=== PATIENT | female | born 1980 | race Caucasian/White ===

== ENCOUNTER 2019-07-29 04:26 | Emergency (ER) | payer OTHER ==
[~2019-07-29] VITALS: Ht 154.9 cm; Wt 61.2 kg
[2019-07-29 05:12] LABS: BASOPHILS ABSOLUTE AUTO 0.04 K/mm3 (0.00-0.23); BASOPHILS PERCENT AUTO 1 % (0-2); EOSINOPHILS ABSOLUTE AUTO 0.16 K/mm3 (0.00-0.68); EOSINOPHILS PERCENT AUTO 2 % (0-6); Hematocrit 35.2 % (33.0-51.0); Hemoglobin 11.2 g/dL (11.5-16.0); IMMATURE GRAN ABSOLUTE AUTO 0.01 K/mm3 (0.00-0.10); IMMATURE GRAN PERCENT AUTO 0 % (0-1); LYMPHOCYTES ABSOLUTE AUTO 2.25 K/mm3 (0.84-5.20); LYMPHOCYTES PERCENT AUTO 29 % (21-46); MONOCYTES ABSOLUTE AUTO 0.79 K/mm3 (0.16-1.47); MONOCYTES PERCENT AUTO 10 % (4-13); Mean Corpuscular HGB 27.2 pg (26.0-34.0); Mean Corpuscular HGB Conc 31.8 g/dL (31.5-36.5); Mean Corpuscular Volume 85 fL (80-100); Mean Platelet Volume 9.9 fL (9.1-12.4); NEUTROPHILS ABSOLUTE AUTO 4.55 K/mm3 (1.96-9.15); NEUTROPHILS PERCENT AUTO 58 % (41-73); Platelet Count 248 K/mm3 (150-400); RDW Coefficient Variation 13.4 % (11.7-14.2); RDW Standard Deviation 41.7 fL (35.1-46.3); Red Blood Cell Count 4.12 M/mm3 (3.80-5.20)
[2019-07-29 05:33] LABS: Alanine Aminotransfer (ALT/SGP 25 U/L (12-78); Albumin, Blood 3.3 g/dL (3.4-5.0); Albumin/Globulin Ratio 0.9 (0.8-1.8); Alk Phos 73 U/L (50-136); Anion Gap 5 mmol/L (6-16); Aspartate Aminotrans (AST/SGOT 16 U/L (12-37); Bilirubin, Total 0.2 mg/dL (0.1-1.0); Blood Urea Nitrogen 7 mg/dL (8-24); CO2, Blood 23 mmol/L (21-32); Calcium, Blood 8.6 mg/dL (8.5-10.1); Chloride, Blood 114 mmol/L (98-108); Globulin, Blood 3.5 g/dL (2.2-4.0); Glomerular Filtration Rate >60 (60-); Glucose, Blood 87 mg/dL (70-99); Magnesium, Blood 1.6 mg/dL (1.6-2.4); Potassium, Blood 3.1 mmol/L (3.5-5.5); Sodium, Blood 142 mmol/L (136-145); Total Protein, Blood 6.8 g/dL (6.4-8.2)
[2019-07-29 05:36] LABS: Source, Urine Clean Catch
[2019-07-29] MEDS ORDERED: BUPR75 PO (05:39)
[2019-07-29] MEDS ORDERED: GABA300 PO (05:39)
[2019-07-29] MEDS ORDERED: QUET100 PO (05:40)
[2019-07-29] MEDS ORDERED: FLUOXETINE HCL60 MG PO (05:40)
[2019-07-29] MEDS ORDERED: CLON.1 PO (05:40)
[2019-07-29] MEDS ORDERED: BACL10 PO (05:41)
[2019-07-29 05:42] LABS: Appearance, Urine Clear (Clear); Bilirubin, Urine Neg (Neg); Blood, Urine Neg (Neg); Color, Urine Amber (P-Yellow); Glucose Qualitative, Urine Neg (Neg); Ketones, Urine 1+ (Neg); Leukocyte Esterase, Urine 1+ (Neg); Nitrite, Urine Neg (Neg); Protein, Urine 1+ (Neg); Urobilinogen, Urine 1+ (Normal)
[2019-07-29 05:50] LABS: Bacteria Few /hpf; Red Blood Cells, Urine Not Seen /hpf (0-2); Squamous Epithelial Cells Mod /hpf (Few); White Blood Cells, Urine 0-2 /hpf (0-5)
[2019-07-29 05:51] LABS: Calcium Oxalate Crystals Few /hpf; Mucus Light (0-Heavy)
[2019-07-29] MEDS ORDERED: Flagyl500 MG PO (06:08)
[2019-07-29] MEDS ORDERED: Zofran4 MG PO (06:09)
[2019-07-29] MEDS ORDERED: Lomotil Tablet1 EACH PO (06:26)
== END 2019-07-29 06:47 | disposition home or self-care (01) ==
LOC: ER 04:26
PROVIDERS: Emergency Medicine
DX: E87.6 Hypokalemia (principal); R19.7 Diarrhea, unspecified; E86.0 Dehydration; K21.9 Gastro-esophageal reflux disease without esophagitis; F17.200 Nicotine dependence, unspecified, uncomplicated
CPT/HCPCS: 80053; 81001; 81025; 83690; 83735; 84145; 85025; 87015; 87045; 87046; 87086; 87177; 87205; 87209; 87493; 87899; 96361; 96374; 99284-25; A9270-GY; J2550; J7030

== ENCOUNTER 2024-10-17 10:38 | Inpatient (IN) | payer OTHER ==
[~2024-10-17] VITALS: Ht 154.9 cm; Wt 56.2 kg
[~2024-10-17 10:38] MED LIST: BACL10 PO; BUPR75 PO; CLON.1 PO; FLUOXETINE HCL60 MG PO; Flagyl500 MG PO; GABA300 PO; Lomotil Tablet1 EACH PO; QUET100 PO; Zofran4 MG PO
[2024-10-17 12:17] LABS: BASOPHILS ABSOLUTE AUTO 0.07 K/mm3 (0.00-0.23); BASOPHILS PERCENT AUTO 0 % (0-2); EOSINOPHILS ABSOLUTE AUTO 0.03 K/mm3 (0.00-0.68); EOSINOPHILS PERCENT AUTO 0 % (0-6); Hematocrit 33.1 % (33.0-51.0); Hemoglobin 10.7 g/dL (11.5-16.0); IMMATURE GRAN ABSOLUTE AUTO 0.22 K/mm3 (0.00-0.10); IMMATURE GRAN PERCENT AUTO 1 % (0-1); LYMPHOCYTES ABSOLUTE AUTO 1.27 K/mm3 (0.84-5.20); LYMPHOCYTES PERCENT AUTO 6 % (21-46); MONOCYTES ABSOLUTE AUTO 1.41 K/mm3 (0.16-1.47); MONOCYTES PERCENT AUTO 7 % (4-13); Mean Corpuscular HGB Conc 32.3 g/dL (31.5-36.5); Mean Corpuscular Volume 81 fL (80-100); NEUTROPHILS ABSOLUTE AUTO 18.82 K/mm3 (1.96-9.15); NEUTROPHILS PERCENT AUTO 86 % (41-73); Platelet Count 560 K/mm3 (150-400); RDW Coefficient Variation 14.3 % (11.7-14.2); RDW Standard Deviation 42.5 fL (35.1-46.3); Red Blood Cell Count 4.11 M/mm3 (3.80-5.20); White Blood Cell Count 21.82 K/mm3 (4.00-11.30)
[2024-10-17 12:29] LABS: Influenza A, PCR NEGATIVE (NEGATIVE); Influenza B, PCR NEGATIVE (NEGATIVE); SARS-Cov-2 (COVID-19) PCR, MMC NEGATIVE (NEGATIVE)
[2024-10-17 12:30] LABS: Resp Syncytial Virus, PCR POSITIVE (NEGATIVE)
[2024-10-17 12:46] LABS: Albumin, Blood 2.2 g/dL (3.4-5.0); Albumin/Globulin Ratio 0.4 (0.8-1.8); Bilirubin, Total 0.4 mg/dL (0.1-1.0); Bun/Creatinine Ratio 22.4 (12.0-20.0); Creatinine, Blood 0.54 mg/dL (0.40-1.00); Potassium, Blood 4.1 mmol/L (3.5-5.5); Total Protein, Blood 8.2 g/dL (6.4-8.2)
[2024-10-17] MEDS ORDERED: Piperacillin/Tazobactam Sod 3.375 GM in NS 100 ML IV ONE (14:25)
[2024-10-17] MEDS ORDERED: NS 1,000 ML IV SCH ×2 (15:15→17:45)
[2024-10-17] MEDS ORDERED: Acetaminophen 500 MG Tab PO ONE (15:15)
[2024-10-17] MEDS ORDERED: Vancomycin HCL 1,250 MG in NS 250 ML IV ONE (15:25)
[2024-10-17 16:55] LABS: Source, Urine Clean Catch
[2024-10-17 17:05] LABS: Appearance, Urine Cloudy (Clear); Bilirubin, Urine Neg (Neg); Blood, Urine 1+ (Neg); Color, Urine Yellow (P-Yellow); Glucose Qualitative, Urine Neg (Neg); Ketones, Urine 1+ (Neg); Leukocyte Esterase, Urine 3+ (Neg); Nitrite, Urine Neg (Neg); Protein, Urine 2+ (Neg); Specific Gravity, Urine 1.005 (1.003-1.022); Urobilinogen, Urine 2+ (Normal)
[2024-10-17] MEDS ORDERED: Lactated Ringer's 1,000 ML IV SCH (17:10)
[2024-10-17] MEDS ORDERED: Acetaminophen 325 MG TABLET PO PRN (17:10)
[2024-10-17] MEDS ORDERED: FLU VACC TS2024-25(6MOS UP)/PF 45 MCG/0.5 ML SYRINGE IM ONE (17:10)
[2024-10-17] MEDS ORDERED: Ondansetron HCl 2 MG / ML 2ML Vial IV PRN (17:15)
[2024-10-17 17:20] LABS: Bacteria Mod /hpf; Squamous Epithelial Cells Few /hpf (Few)
[2024-10-17] MEDS ORDERED: Ketorolac Tromethamine 15mg Vial IV PRN (17:40)
[2024-10-17] MEDS ORDERED: Clindamycin 900mg in D5W 50ML 50 ML IV SCH (18:00)
[2024-10-17 19:31] VITALS: BP 90/56
[2024-10-17 19:41] LABS: U Amphetamine Screen DETECTED; U Barbituate Screen Not Detected; U Benzodiazapine Screen Not Detected; U Buprenorphine Screen Not Detected; U Cannabinoids Screen DETECTED; U Cocaine Screen Not Detected; U Methadone Screen Not Detected; U Methamphetamine Screen DETECTED; U Opiates Screen Not Detected; U Oxycodone Screen Not Detected; U Phencyclidine Screen Not Detected
[2024-10-17] MEDS ORDERED: OxyCODONE HCL 5 MG TAB PO PRN (20:55)
[2024-10-17] MEDS ORDERED: Lactobacil 2-S.Thermo-Bifido 1 1 Cap PO SCH (21:00)
[2024-10-18] MEDS ORDERED: Piperacillin/Tazobactam Sod 3.375 GM in NS 100 ML IV SCH
[2024-10-18] MEDS ORDERED: Vancomycin HCL 1,000 MG in NS 250 ML IV SCH
[2024-10-18 03:21] VITALS: BP 113/74
[2024-10-18 05:44] LABS: BASOPHILS ABSOLUTE AUTO 0.04 K/mm3 (0.00-0.23); BASOPHILS PERCENT AUTO 0 % (0-2); EOSINOPHILS ABSOLUTE AUTO 0.06 K/mm3 (0.00-0.68); EOSINOPHILS PERCENT AUTO 0 % (0-6); Hematocrit 28.1 % (33.0-51.0); Hemoglobin 8.8 g/dL (11.5-16.0); IMMATURE GRAN ABSOLUTE AUTO 0.13 K/mm3 (0.00-0.10); IMMATURE GRAN PERCENT AUTO 1 % (0-1); LYMPHOCYTES ABSOLUTE AUTO 1.06 K/mm3 (0.84-5.20); LYMPHOCYTES PERCENT AUTO 6 % (21-46); MONOCYTES ABSOLUTE AUTO 1.09 K/mm3 (0.16-1.47); MONOCYTES PERCENT AUTO 6 % (4-13); Mean Corpuscular HGB 25.9 pg (26.0-34.0); Mean Corpuscular HGB Conc 31.3 g/dL (31.5-36.5); Mean Corpuscular Volume 83 fL (80-100); Mean Platelet Volume 9.1 fL (9.1-12.4); NEUTROPHILS ABSOLUTE AUTO 14.91 K/mm3 (1.96-9.15); NEUTROPHILS PERCENT AUTO 86 % (41-73); Platelet Count 463 K/mm3 (150-400); RDW Coefficient Variation 14.6 % (11.7-14.2); RDW Standard Deviation 43.8 fL (35.1-46.3); White Blood Cell Count 17.29 K/mm3 (4.00-11.30)
[2024-10-18] MEDS ORDERED: Pantoprazole Sodium 40 MG Injection IV SCH (06:00)
[2024-10-18 06:16] LABS: Albumin, Blood 1.6 g/dL (3.4-5.0); Albumin/Globulin Ratio 0.3 (0.8-1.8); Bilirubin, Total 0.5 mg/dL (0.1-1.0); Bun/Creatinine Ratio 21.8 (12.0-20.0); Calcium, Blood 8.3 mg/dL (8.5-10.1); Creatinine, Blood 0.6 mg/dL (0.40-1.00); Globulin, Blood 4.8 g/dL (2.2-4.0); Magnesium, Blood 2.1 mg/dL (1.6-2.4); Potassium, Blood 3.7 mmol/L (3.5-5.5); Total Protein, Blood 6.4 g/dL (6.4-8.2)
[2024-10-18 07:43] VITALS: BP 121/69
--- NOTE | 2024-10-18 08:30 | NUR ---
PT TO RADIOLOGY TO DRAIN ABSCESS.
--- NOTE | 2024-10-18 09:30 | NUR ---
PT BACK TO ROOM FROM RADIOLOGY. DRAIN TO PELVIC ABSCESS IN PLACE AND PATENT.
[2024-10-18 12:43] VITALS: BP 99/62
[2024-10-18 16:22] LABS: Vancomycin, Trough 15.1 ug/mL (5.0-10.0)
[2024-10-18 16:45] VITALS: BP 96/62
--- NOTE | 2024-10-18 18:10 | NUR ---
SHIFT SUMMARY PT IS A/OX4. SBA IN THE ROOM TO ASSIST WITH LINES/CORDS. DRAIN TO THE ABSCESS PLACED THIS MORNING. DRAN REMAINS PATENT. PT REPORTS MILD PAIN THROUGHOUT THIS SHIFT, MEDICATED PER SEP. LOW-GRADE FEVER PRESENT THIS AFTERNOON, MEDICATED WITH TYLENOL PER SEP. WHEN ASSISTING THE PT TO THE BATHROOM THIS EVENING BLOOD WAS ASSESSED ON THE SHEETS UNDERNEATH WHERE THE PT WAS SITTING. URINE IS RED WITH MODERATE SIZED CLOTS. BLEEDING APPEARS TO BE FROM MENSTRUATION. CONTINUOUS NS RUNNING @ 100 ML/HR. PT CALLS APPROPRIATELY USING THE CALL LIGHT.
[2024-10-18 19:25] VITALS: BP 124/70
[2024-10-19 03:23] VITALS: BP 110/70
--- NOTE | 2024-10-19 04:22 | NUR ---
VAGINAL SWAB SENT TO THE LAB @ 8940.
--- NOTE | 2024-10-19 04:25 | NUR ---
SHIFT SUMMARY NO ACUTE EVENTS DURING THE NIGHT HOURS. @HS PT FEBRILE, 101F. MEDICATED WITH PRN TYLENOL. RECHECK TEMP. 98F. PT REPORTS EFFECTIVE. PT C/O 9-05/09 LLQ AND LEFT GROIN PAIN. PO PRN OXYCODONE EFFECTIVE PER PT REPORT. DRAIN INSERTION SITE C/D/I. OUTPUT FROM THE DRAIN 120MLS OF CREAMY COLOR, MILDLY THICK AND ODOROUS DISCHARGE. PT HAS MODERATE AMOUNT OF VAGINAL BLEEDING, NO CLOTS NOTED. SBA TO THE BSC. VAGINAL SWAB SENT TO THE LAB FOR CHLAMYDIA TESTING @0400. NS INFUSING @100MLS/HR ORDERED. IV ABX'S INFUSED ORDERED.TELE: SINUS TACH @100BPM. PT DENIES CHEST PAIN/PRESSURE. PT IS A/O X4, PLEASANT, AND ABLE TO MAKE HER NEEDS KNOWN. NO OTHER CONCERNS AT THIS TIME. CONTINUING PT EDUCATION. BED AT THE LOWEST POSITION, CALL LIGHT W/I REACH.
[2024-10-19 05:30] LABS: BASOPHILS ABSOLUTE AUTO 0.03 K/mm3 (0.00-0.23); BASOPHILS PERCENT AUTO 0 % (0-2); EOSINOPHILS ABSOLUTE AUTO 0.08 K/mm3 (0.00-0.68); EOSINOPHILS PERCENT AUTO 1 % (0-6); Hematocrit 25.1 % (33.0-51.0); Hemoglobin 8.1 g/dL (11.5-16.0); IMMATURE GRAN ABSOLUTE AUTO 0.11 K/mm3 (0.00-0.10); IMMATURE GRAN PERCENT AUTO 1 % (0-1); LYMPHOCYTES PERCENT AUTO 8 % (21-46); MONOCYTES ABSOLUTE AUTO 0.65 K/mm3 (0.16-1.47); MONOCYTES PERCENT AUTO 7 % (4-13); Mean Corpuscular HGB 26.5 pg (26.0-34.0); Mean Corpuscular HGB Conc 32.3 g/dL (31.5-36.5); Mean Corpuscular Volume 82 fL (80-100); Mean Platelet Volume 9.4 fL (9.1-12.4); NEUTROPHILS ABSOLUTE AUTO 8.02 K/mm3 (1.96-9.15); NEUTROPHILS PERCENT AUTO 83 % (41-73); Platelet Count 406 K/mm3 (150-400); RDW Coefficient Variation 14.7 % (11.7-14.2); RDW Standard Deviation 44.4 fL (35.1-46.3); Red Blood Cell Count 3.06 M/mm3 (3.80-5.20); White Blood Cell Count 9.69 K/mm3 (4.00-11.30)
[2024-10-19 06:02] LABS: Calcium, Blood 7.8 mg/dL (8.5-10.1); Creatinine, Blood 0.56 mg/dL (0.40-1.00); Potassium, Blood 3.6 mmol/L (3.5-5.5)
[2024-10-19 06:59] LABS: Chlamydia Trachomatis Vaginal NOT DETECTED (NOT DETECT); Neisseria Gonorrhoea Vaginal NOT DETECTED (NOT DETECT)
[2024-10-19 08:18] VITALS: BP 96/66
[2024-10-19] MEDS ORDERED: Enoxaparin 40 MG/0.4 ML SYR SC SCH (09:00)
[2024-10-19 14:04] VITALS: BP 101/60
--- NOTE | 2024-10-19 17:26 | NUR ---
SHIFT SUMMARY: PATIENT A/OX4, CALM, PLEASANT AND COOPERATIVE c CARE. PATIENT DENIES CP/PRESSURE, SOB, N/V AND DIZZINESS. PATIENT ON TELE, SR HR IN THE HIGH 80'S BPM c OCCASIONAL PVC. PATIENT MEDICATED X1 FOR PAIN PER EMAR c GOOD EFFECT. PATIENT HAS HAD NO FEVER THIS SHIFT. PATIENT DAY 1 POST-OP ACCORDIAN DRAINED PLACEMENT TO L SIDE ABDOMEN ABSCESS, SITE IS PATENT DRAINING 200 MLS GREENISH CREAMY COLOR, MALODOROUS. PATIENT HAS MOD APPETITE, CONTINENT OF BOWEL/BLADDER, USES BSC INDEPENDENTLY T/O SHIFT. PATIENT RECEIVED IV ABX/SCHEDULED MEDS PER EMAR. VITAL SIGNS REVIEWED. BED IN LOWEST POSITIONED. CALL LIGHT IN REACH.
[2024-10-19 17:47] VITALS: BP 100/60
[2024-10-19 19:38] VITALS: BP 96/55
--- NOTE | 2024-10-20 03:06 | NUR ---
SHIFT SUMMARY NO ACUTE EVENTS DURING THIS SHIFT. NS INFUSING 100MLS/HR AND IV ABX'S INFUSED ORDERED. LL INCISION SITE C/D/I. ACCORDION DRAIN OUTPUT>100MLS, MILKY APPEARING DISCHARGE. PT CONTINUES TO HAVE BLOODY VAGINAL DISCHARGE. TELE: SR @82. PT DENIES CHEST PAIN/PRESSURE/SOB. MEDICATED ORDERED WITH PRN PO TYLENOL FOR C/O 02/06 LL ABDOMINAL PAIN. PT REPORTS LEFT LEG HAS LESS OF ROM. BED AT THE LOWEST POSITION, CALL LIGHT W/I REACH. PT IS A/O X4, ABLE TO MAKE HER NEEDS KNOWN AND COOPERATIVE [facility].
[2024-10-20 03:33] VITALS: BP 114/74
[2024-10-20 04:49] LABS: BASOPHILS ABSOLUTE AUTO 0.04 K/mm3 (0.00-0.23); BASOPHILS PERCENT AUTO 1 % (0-2); EOSINOPHILS ABSOLUTE AUTO 0.16 K/mm3 (0.00-0.68); EOSINOPHILS PERCENT AUTO 3 % (0-6); Hematocrit 29.6 % (33.0-51.0); Hemoglobin 9.3 g/dL (11.5-16.0); IMMATURE GRAN ABSOLUTE AUTO 0.13 K/mm3 (0.00-0.10); IMMATURE GRAN PERCENT AUTO 2 % (0-1); LYMPHOCYTES ABSOLUTE AUTO 1.28 K/mm3 (0.84-5.20); LYMPHOCYTES PERCENT AUTO 20 % (21-46); MONOCYTES ABSOLUTE AUTO 0.65 K/mm3 (0.16-1.47); MONOCYTES PERCENT AUTO 10 % (4-13); Mean Corpuscular HGB 25.8 pg (26.0-34.0); Mean Corpuscular HGB Conc 31.4 g/dL (31.5-36.5); Mean Corpuscular Volume 82 fL (80-100); Mean Platelet Volume 8.9 fL (9.1-12.4); NEUTROPHILS ABSOLUTE AUTO 4.22 K/mm3 (1.96-9.15); NEUTROPHILS PERCENT AUTO 65 % (41-73); Platelet Count 543 K/mm3 (150-400); RDW Coefficient Variation 14.6 % (11.7-14.2); RDW Standard Deviation 44.2 fL (35.1-46.3); White Blood Cell Count 6.48 K/mm3 (4.00-11.30)
[2024-10-20 05:05] LABS: Bun/Creatinine Ratio 12.9 (12.0-20.0); Calcium, Blood 8.3 mg/dL (8.5-10.1); Creatinine, Blood 0.54 mg/dL (0.40-1.00); Potassium, Blood 3.4 mmol/L (3.5-5.5)
[2024-10-20] MEDS ORDERED: Potassium Chloride 20 MEQ TabCR PO ONE (06:37)
[2024-10-20 08:08] VITALS: BP 110/68
[2024-10-20 11:45] LABS: HEPATITIS A ANTIBODY, IGM Negative (Negative); HEPATITIS B CORE ANTIBODY, IGM Negative (Negative); HEPATITIS B SURFACE ANTIGEN Negative (Negative); HEPATITIS C AB CIA INTERP Negative (Negative)
[2024-10-20 12:08] LABS: HIV 1,2 COMBO ANTIGEN/ANTIBODY Negative (Negative)
[2024-10-20 15:51] VITALS: BP 109/66
--- NOTE | 2024-10-20 17:59 | NUR ---
SHIFT SUMMARY PT IS A/OX4. INDEPENDENT IN THE ROOM. NO ACUTE CHANGES THROUGHOUT THIS SHIFT. REPEAT CT COMPLETED THIS MORNING, POSSIBLY ANOTHER REPEAT TO BE COMPLETED IN THE MORNING. PT CONTINUES RECIEVING NS @ 100 ML/HR AND IV ANTIBIOTICS. NO FEVER PRESENT THROUGHOUT THIS SHIFT.
[2024-10-20 20:27] VITALS: BP 106/82
[2024-10-21 01:17] VITALS: BP 95/58
--- NOTE | 2024-10-21 03:11 | NUR ---
SHIFT SUMMARY NO ACUTE DISTRESS/EVENTS DURING THIS SHIFT. TELE:NSR @88. @HS PT C/O 02/06 LLQ PAIN. MEDICATED PER EMAR WITH GOOD EFFECTIVNESS. HS SNACK PROVIDED. NS INFUSING ORDERED. ACCORDION DRAIN INTACT, MINIMAL OUTPUT. PT RESTING T/O THIS SHIFT. INDEPENDENT W/I THE HOSPITAL ROOM. PT CONTINUES TO HAVE BLOODY VAGINAL DISCHARGE. BED AT THE LOWEST POSITION, CALL LIGHT W/I REACH. PT IS A/O X4, ABLE TO MAKE HER NEEDS KNOWN AND COOPERATIVE WITH CARE.
[2024-10-21 05:20] VITALS: BP 115/89
[2024-10-21 07:50] VITALS: BP 102/70
[2024-10-21 08:28] LABS: Hematocrit 28.2 % (33.0-51.0); Hemoglobin 8.8 g/dL (11.5-16.0); Mean Corpuscular HGB Conc 31.2 g/dL (31.5-36.5); Mean Corpuscular Volume 83 fL (80-100); Mean Platelet Volume 8.9 fL (9.1-12.4); Platelet Count 520 K/mm3 (150-400); RDW Coefficient Variation 14.7 % (11.7-14.2); RDW Standard Deviation 44.8 fL (35.1-46.3); Red Blood Cell Count 3.38 M/mm3 (3.80-5.20); White Blood Cell Count 6.45 K/mm3 (4.00-11.30)
[2024-10-21 08:45] LABS: Bun/Creatinine Ratio 16.9 (12.0-20.0); Calcium, Blood 8.2 mg/dL (8.5-10.1); Creatinine, Blood 0.47 mg/dL (0.40-1.00); Potassium, Blood 3.7 mmol/L (3.5-5.5)
[2024-10-21 11:54] VITALS: BP 121/81
[2024-10-21] MEDS ORDERED: Ampicillin Sod/Sulbactam Sod 3 GM in NS 100 ML IV SCH (12:00)
[2024-10-21 16:20] VITALS: BP 125/77
--- NOTE | 2024-10-21 17:24 | NUR ---
SHIFT SUMMARY PT AOX4, COOPERATIVE, ABLE TO MAKE NEEDS KNOWN. IND IN ROOM, CONTINENT. DOES HAVE DRAIN IN LOWER LEFT ABDOMEN DRAINING YELLOW-MILKY PURULENT DRAINAGE. DRAINAGE FILLS ACCORDIAN DEVICE, RN SQUEEZES DEVICE TO REACTIVE SUCTION. PT HAD COMPLAINT OF PAIN, MEDICATED PER EMAR. STILL ON DROPLET PRECAUTION FOR RSV PER REPORT FROM NOC SHIFT NURSE. BED IN LOWEST POSITION, CALL LIGHT WITHIN REACH.
[2024-10-21 19:52] VITALS: BP 125/92
[2024-10-22 00:25] VITALS: BP 121/70
[2024-10-22 04:23] VITALS: BP 106/80
[2024-10-22 07:31] LABS: Hemoglobin 9.2 g/dL (11.5-16.0); Mean Corpuscular HGB Conc 31.7 g/dL (31.5-36.5); Mean Corpuscular Volume 82 fL (80-100); Mean Platelet Volume 8.5 fL (9.1-12.4); Platelet Count 483 K/mm3 (150-400); RDW Coefficient Variation 14.6 % (11.7-14.2); RDW Standard Deviation 43.9 fL (35.1-46.3); Red Blood Cell Count 3.54 M/mm3 (3.80-5.20); White Blood Cell Count 7.97 K/mm3 (4.00-11.30)
[2024-10-22 07:54] VITALS: BP 123/81
[2024-10-22 13:06] VITALS: BP 136/92
[2024-10-22 16:30] VITALS: BP 122/75
--- NOTE | 2024-10-22 18:05 | NUR ---
SHIFT SUMMARY PT AOX4, COOPERATIVE, ABLE TO MAKE NEEDS KNOWN. PT TOOK SHOWER TODAY, WRAPPED DRAIN WITH LARGE TEGADERM. ON RA, TOLERATING PO AND IV MEDICATION. REPORTS PAIN, MEDICATE PER EMAR. IND IN ROOM. BED IN LOWEST POSITION, CALL LIGHT WITHIN REACH.
[2024-10-22 19:43] VITALS: BP 136/89
[2024-10-22 19:43] LABS: 11-NOR-9-CARBOXY-THC,URN,QUANT 249 ng/mL
[2024-10-23 00:40] VITALS: BP 138/89
--- NOTE | 2024-10-23 03:15 | NUR ---
SHIFT SUMMARY NO ACUTE EVENTS DURING THIS SHIFT. TELE: SR @14 WITH BBB. MEDICATED PER EMAR FOR C/O 03/09 LLQ PAIN. IV ABX INFUSED ORDERED. NEW IV IN LAC. BED AT THE LOWEST POSITION, CALL LIGHT W/I REACH. PT IS A/O X4, ABLE TO MAKE HER NEEDS KNOWN AND COOPERATIVE WITH CARE.
[2024-10-23 04:42] VITALS: BP 113/73
[2024-10-23 08:09] VITALS: BP 111/80
[2024-10-23 10:11] LABS: AMPHETAMINE,URN,QUANT 3226 ng/mL; MDA,URN,QUANT <200 ng/mL; MDEA,URN,QUANT <200 ng/mL; MDMA,URN,QUANT <200 ng/mL; METHAMPHETAMINE,URN,QUANT 5126 ng/mL; PHENTERMINE,URN,QUANT <200 ng/mL
[2024-10-23 11:31] VITALS: BP 95/67
--- NOTE | 2024-10-23 18:43 | NUR ---
SUMMARY- AAOX4. IND IN ROOM. ON RA. ABD PAIN WELL CONTROLLED WITH EMAR PAIN MEDS. DRAIN EMPTIED 40ML THIS DAY SHIFT. PURULENT DRAINAGE. NO ACUTE EVENTS THIS SHIFT.
[2024-10-23 19:42] VITALS: BP 101/65
[2024-10-23 23:39] VITALS: BP 95/61
[2024-10-24 03:57] VITALS: BP 98/56
--- NOTE | 2024-10-24 05:40 | NUR ---
AAOX4 INDEPENDENT IN ROOM. USES CALL LIGHT FOR NEEDS. TELE, SR @ 93. DRESSING CDI TO L HIP/ABDM WITH DRAIN INTACT. 5MG OXY AND TYLENOL FOR PAIN Q6 WHICH PT TAKES TOGETHER. RECIEVING UNASYN, LAC IV. NO ACUTE NEEDS OVERNIGH.
[2024-10-24 06:44] LABS: BASOPHILS ABSOLUTE AUTO 0.08 K/mm3 (0.00-0.23); BASOPHILS PERCENT AUTO 1 % (0-2); EOSINOPHILS ABSOLUTE AUTO 0.24 K/mm3 (0.00-0.68); EOSINOPHILS PERCENT AUTO 3 % (0-6); Hematocrit 32.9 % (33.0-51.0); Hemoglobin 10.6 g/dL (11.5-16.0); IMMATURE GRAN ABSOLUTE AUTO 0.26 K/mm3 (0.00-0.10); IMMATURE GRAN PERCENT AUTO 3 % (0-1); LYMPHOCYTES ABSOLUTE AUTO 2.58 K/mm3 (0.84-5.20); LYMPHOCYTES PERCENT AUTO 28 % (21-46); MONOCYTES ABSOLUTE AUTO 0.65 K/mm3 (0.16-1.47); MONOCYTES PERCENT AUTO 7 % (4-13); Mean Corpuscular HGB 26.3 pg (26.0-34.0); Mean Corpuscular HGB Conc 32.2 g/dL (31.5-36.5); Mean Corpuscular Volume 82 fL (80-100); Mean Platelet Volume 8.9 fL (9.1-12.4); NEUTROPHILS ABSOLUTE AUTO 5.45 K/mm3 (1.96-9.15); NEUTROPHILS PERCENT AUTO 59 % (41-73); Platelet Count 484 K/mm3 (150-400); RDW Coefficient Variation 15.4 % (11.7-14.2); RDW Standard Deviation 43.4 fL (35.1-46.3); Red Blood Cell Count 4.03 M/mm3 (3.80-5.20); White Blood Cell Count 9.26 K/mm3 (4.00-11.30)
[2024-10-24 07:21] LABS: Bun/Creatinine Ratio 30.3 (12.0-20.0); Calcium, Blood 8.6 mg/dL (8.5-10.1); Creatinine, Blood 0.56 mg/dL (0.40-1.00); Potassium, Blood 4.7 mmol/L (3.5-5.5)
[2024-10-24 07:28] VITALS: BP 90/70
[2024-10-24 15:36] VITALS: BP 111/68
--- NOTE | 2024-10-24 16:27 | NUR ---
NO ACUTE CHANGES THIS SHIFT. PATIENT INDEPENDENTLY AND COOPERATIVE WITH CARE. DRAIN TO LLQ ABDOMEN WITH MINIMAL CLEAR/YELLOW OUTPUT. OXYCODONE AND TYLENOL GIVEN X1 THIS SHIFT FOR PAIN WITH STATED RELIEF. A/OX4, ABLE TO MAKE NEEDS KNOWN.
[2024-10-24] MEDS ORDERED: NS 250 ML IV PRN (19:30)
[2024-10-24 20:39] VITALS: BP 101/64
[2024-10-25 00:19] VITALS: BP 116/78
[2024-10-25 04:35] VITALS: BP 95/61
[2024-10-25 08:42] VITALS: BP 112/77
[2024-10-25 16:22] VITALS: BP 92/54
--- NOTE | 2024-10-25 17:50 | NUR ---
SHIFT SUMMARY PT CONT LEVEL OF CARE WITH NO ACUTE CHANGES NOTED. PT HAD REPEAT CT DONE THIS SHIFT. AND WILL POSSIBLE DC TOMORROW. L NEPHOROSTOMY TUBE CONT TO REMAIN IN PLACE WITH VERY LITTLE OUTPUT NOTED.
[2024-10-25 20:34] VITALS: BP 111/75
[2024-10-26 04:44] VITALS: BP 113/79
--- NOTE | 2024-10-26 04:57 | NUR ---
PT A&O X4, VS WNL, PO INTAKE WNL, INDEPENDENT WITH MOBILITY AND ADL'S. PT REMAINS ON IVABX FOR INFECTION (RSV, AND ABSCESS). REMAINS IN DROPLETT ISOLATION. PLAN TO D/C HOME WITH PO ABX.
[2024-10-26 06:10] LABS: BASOPHILS ABSOLUTE AUTO 0.08 K/mm3 (0.00-0.23); BASOPHILS PERCENT AUTO 1 % (0-2); EOSINOPHILS ABSOLUTE AUTO 0.19 K/mm3 (0.00-0.68); EOSINOPHILS PERCENT AUTO 2 % (0-6); Hematocrit 33.1 % (33.0-51.0); Hemoglobin 10.3 g/dL (11.5-16.0); IMMATURE GRAN ABSOLUTE AUTO 0.14 K/mm3 (0.00-0.10); IMMATURE GRAN PERCENT AUTO 1 % (0-1); LYMPHOCYTES ABSOLUTE AUTO 2.53 K/mm3 (0.84-5.20); LYMPHOCYTES PERCENT AUTO 20 % (21-46); MONOCYTES ABSOLUTE AUTO 0.71 K/mm3 (0.16-1.47); MONOCYTES PERCENT AUTO 6 % (4-13); Mean Corpuscular HGB 26.1 pg (26.0-34.0); Mean Corpuscular HGB Conc 31.1 g/dL (31.5-36.5); Mean Corpuscular Volume 84 fL (80-100); NEUTROPHILS ABSOLUTE AUTO 8.75 K/mm3 (1.96-9.15); NEUTROPHILS PERCENT AUTO 71 % (41-73); Platelet Count 482 K/mm3 (150-400); RDW Coefficient Variation 15.7 % (11.7-14.2); RDW Standard Deviation 46.6 fL (35.1-46.3); Red Blood Cell Count 3.94 M/mm3 (3.80-5.20)
[2024-10-26 06:34] LABS: Bun/Creatinine Ratio 41.5 (12.0-20.0); Calcium, Blood 9.3 mg/dL (8.5-10.1); Creatinine, Blood 0.6 mg/dL (0.40-1.00); Potassium, Blood 4.4 mmol/L (3.5-5.5)
[2024-10-26 07:39] VITALS: BP 133/98
--- NOTE | 2024-10-26 09:00 | NUR ---
pt sitting up in chair, a/ox4 pleasant and cooperative with care, follows commands well, reports mild aching at the drain site, lungs are clear t/o, resp even and unlabored, no cough noted, hrr, no edema noted, ppp+2, cap refill<3 sec, vs stable, afebrile, piv to lac, site is clear and patent, btx4, abd flat soft nontender, voids without diff, skin has drain to llq site is clear draining a light correia fluid, scant amount, maмария, up indep in room, [place], call light in reach.
[2024-10-26] MEDS ORDERED: OXAYDO5 M2 PO (13:14)
[2024-10-26] MEDS ORDERED: AMOCLA875 PO (13:15)
[2024-10-26] MEDS ORDERED: LACT PO (13:15)
--- NOTE | 2024-10-26 13:29 | NUR ---
pt has been discharged to home, drain has been removed, went over discharge instructions with her, she verbalized understanding, hard copy script for pain meds was given to her, placed in packet, she will f/u with betty, iv removed intact, faxed new medications to jermaine. left via wheelchair with electronics technician apprentice in attendence.
== END 2024-10-26 13:30 | disposition home or self-care (01) | DRG 871 ==
LOC: ER 10:38 → ERHOLD 16:53 → MEDS 16:53
PROVIDERS: Internal Medicine; Pharmacist; Student in an Organized Health Care Education/Training Program; ADMIT Student in an Organized Health Care Education/Training Program
PROC: 3E03329 Introduction of Other Anti-infective into Peripheral Vein, Percutaneous Approach (ICD-10-PCS; principal; 2024-10-17)
PROC: 0K9P30Z Drainage of Left Hip Muscle with Drainage Device, Percutaneous Approach (ICD-10-PCS; 2024-10-17)
DX: A41.9 Sepsis, unspecified organism (principal); K68.12 Psoas muscle abscess; E87.1 Hypo-osmolality and hyponatremia; N39.0 Urinary tract infection, site not specified; K21.9 Gastro-esophageal reflux disease without esophagitis; Z96.612 Presence of left artificial shoulder joint; F12.90 Cannabis use, unspecified, uncomplicated; Z96.642 Presence of left artificial hip joint; N73.2 Unspecified parametritis and pelvic cellulitis; M60.9 Myositis, unspecified; N89.8 Other specified noninflammatory disorders of vagina; R16.2 Hepatomegaly with splenomegaly, not elsewhere classified; D64.9 Anemia, unspecified; B97.4 Respiratory syncytial virus as the cause of diseases classified elsewhere; E87.6 Hypokalemia; Z87.891 Personal history of nicotine dependence; Z79.899 Other long term (current) drug therapy; Z98.1 Arthrodesis status; Z87.19 Personal history of other diseases of the digestive system; Z98.890 Other specified postprocedural states; Z28.21 Immunization not carried out because of patient refusal
CPT/HCPCS: 0241U; 36415; 49406; 74177; 80048; 80053; 80074; 80202; 81001; 83605; 83690; 83735; 85025; 85027; 87040; 87070; 87075; 87076; 87086; 87147; 87205; 87389; 87491; 87591; 96365-59; 96367; 99284-25; A9270; G0480; J0295; J1650; J2470; J2543; J3370; J7030; J7050; Q9967